=== PATIENT | female | born 1955 | race Caucasian/White ===

== ENCOUNTER 2018-03-20 16:59 | Emergency (ER) | payer BC ==
--- NOTE | 2018-03-20 17:54 | EDM.PDOC ---
ED HPI GENERAL MEDICAL PROBLEM - General Chief Complaint: Laceration Stated Complaint: HIT HEAD ON CUPBOARD Time Seen by Provider: 03/20/18 17:45 Source of Information: Reports: Patient, Family, RN Notes Reviewed History Limitations: Reports: No Limitations - History of Present Illness INITIAL COMMENTS - FREE TEXT/NARRATIVE: Patient presents with complaints of laceration to top of head. No LOC No use of anticoagulants. - Related Data Allergies Allergy/AdvReac Type Severity Reaction Status Date / Time tramadol [From Ultram] Allergy Confusion Verified 03/20/18 17:25 Past Medical History HEENT History: Reports: Impaired Vision Respiratory History: Reports: Asthma Gastrointestinal History: Reports: Irritable Bowel Syndrome Musculoskeletal History: Reports: Arthritis, Fibromyalgia Dermatologic History: Reports: Other (See Below) Other Dermatologic History: cut on top of head Social & Family History - Tobacco Use Smoking Status *Q: Never Smoker - Caffeine Use Caffeine Use: Reports: Coffee - Recreational Drug Use Recreational Drug Use: No ED ROS GENERAL - Review of Systems Review Of Systems: See Below Constitutional: Reports: No Symptoms HEENT: Reports: Other (Pain to site of laceration top of scalp) Respiratory: Reports: No Symptoms Cardiovascular: Reports: No Symptoms Musculoskeletal: Reports: No Symptoms Skin: Reports: Wound, Other (Laceration to scalp, bleeding controlled. ) Neurological: Reports: No Symptoms Psychiatric: Reports: No Symptoms Hematologic/Lymphatic: Reports: No Symptoms Immunologic: Reports: No Symptoms ED EXAM, SKIN/RASH Exam: See Below Text/Narrative:: Na is an alert and oriented 62 year old female presenting with complaints of laceration to her scalp. She states she bent down in her camper then stood up and struck her head on a cabinet corner. She denies LOC, use of anticoagulants or other injury. GCS 15 Exam Limited By: No Limitations General Appearance: Alert, WD/WN, No Apparent Distress Eye Exam: Bilateral Eye: EOMI, Normal Inspection, PERRL Ears: Normal External Exam, Normal Canal, Hearing Grossly Normal, Normal TMs Nose: Normal Inspection, Normal Mucosa, No Blood Throat/Mouth: Normal Inspection, Normal Lips, Normal Gums, Normal Oropharynx, Normal Voice, No Airway Compromise Head: Normocephalic, Other (Scalp tenderness to frontal/parietal area with <0.5 cm laceration - superficial. ) Neck: Normal Inspection, Supple, Non-Tender, Full Range of Motion. No: Lymphadenopathy (R), Lymphadenopathy (L) Respiratory/Chest: No Respiratory Distress, Lungs Clear, Normal Breath Sounds, No Accessory Muscle Use, Chest Non-Tender Cardiovascular: Normal Peripheral Pulses, Regular Rate, Rhythm, No Edema, No Murmur, No Rub Peripheral Pulses: 2+: Radial (L), Radial (R) Back Exam: Normal Inspection, Full Range of Motion. No: CVA Tenderness (R), CVA Tenderness (L) Extremities: Normal Inspection, Normal Range of Motion, Non-Tender, Normal Capillary Refill Neurological: Alert, Oriented, CN II-XII Intact, Normal Cognition, Normal Gait, Normal Reflexes, No Motor/Sensory Deficits Skin: Warm, Dry, Normal Color, No Rash, Other (Laceration to scalp as described above. ) Location, Skin: Head, Other (Laceration superficial, no bleeding) Characteristics: Linear Associated features: Tenderness Lymphatic: No Adenopathy Course - Vital Signs Last Recorded V/S: Last Vital Signs Temp 36.3 C 03/20/18 17:20 Pulse 75 03/20/18 17:20 Resp 18 03/20/18 17:20 BP 151/74 H 03/20/18 17:20 Pulse Ox - Re-Assessments/Exams Free Text/Narrative Re-Assessment/Exam: Discussion about use of sutures/felipe to scalp and no indication at this time. Patient in agreement to use bacitracin for wound care. Departure - Departure Time of Disposition: 17:53 Disposition: Home, Self-Care 01 Condition: Good Clinical Impression: Superficial laceration of scalp - Discharge Information *PRESCRIPTION DRUG MONITORING PROGRAM REVIEWED*: No *COPY OF PRESCRIPTION DRUG MONITORING REPORT IN PATIENT ARIE: No Instructions: Laceration Care, Adult Referrals: PCP,None [Primary Care Provider] - Forms: ED Department Discharge Additional Instructions: You have been evaluated and treated for superficial laceration of the scalp. No need for suture repair. Keep the area clean and dry. You can apply a thin layer of bacitracin ointment three times a day to promote healing. Return for worsening, issues or concerns. - Assessment/Plan Assessment:: Superficial laceration of scalp Plan: Patient evaluated and treated for superficial laceration of the scalp. No need for suture repair. Keep the area clean and dry. Apply a thin layer of bacitracin ointment three times a day to promote healing. Return for worsening, issues or concerns.
== END 2018-03-20 18:09 | disposition home or self-care (01) ==
LOC: JP.ED 16:59
DX: S01.01XA Laceration without foreign body of scalp, initial encounter (principal); Z88.5 Allergy status to narcotic agent; W22.8XXA Striking against or struck by other objects, initial encounter
CPT/HCPCS: 99283